=== PATIENT | male | born 2000 | race Caucasian/White ===

== ENCOUNTER 2025-03-02 17:44 | Emergency (ER) | payer OTHER ==
[~2025-03-02] VITALS: Ht 175.3 cm; Wt 95.0 kg
[2025-03-02 18:19] VITALS: O2SAT 100
[2025-03-02 21:13] VITALS: BP 113/72; PULSE 63; RESP 15; TEMP 37.1; O2SAT 100
== END 2025-03-02 21:13 | disposition home or self-care (01) ==
LOC: ER 17:44
DX: B34.9 Viral infection, unspecified (principal); G40.909 Epilepsy, unspecified, not intractable, without status epilepticus; R51.9 Headache, unspecified
CPT/HCPCS: 99282